=== PATIENT | female | born 1990 | race Caucasian/White ===

== ENCOUNTER → 2022-05-27 | Outpatient (CLI) | payer OTHER ==
[~2022-05-27] MED LIST: ACET-11 PO; IBUP-1773 PO; PNV1TABL67 PO
--- NOTE | 2022-05-27 14:40 | Diagnostic Imaging Report ---
PROCEDURE: Pelvic comp/transvaginal sonogram. TECHNIQUE: Complete transabdominal and transvaginal pelvic ultrasound was performed. In addition, limited pelvic Doppler was performed. INDICATION: Abnormal uterine bleeding. FINDINGS: Uterus is retroverted measuring 6.8 x 4.8 x 5.4 cm. Endometrium is 4 mm in thickness. No myometrial mass is detected. Right ovary measures 3.4 x 1.5 x 1.5 cm, and the left ovary measures 3.7 x 2.8 x 3.0 cm. Both ovaries contain follicles. There is a dominant follicle on the left measuring 16 mm. There is blood flow to both ovaries. No adnexal mass or free fluid is detected. IMPRESSION: Unremarkable transabdominal and transvaginal pelvic ultrasound with limited pelvic Doppler. Dictated by: Dictated on workstation # [id number]
== END ==
LOC: RAD 11:34
PROVIDERS: ATTEND Obstetrics & Gynecology
DX: N93.9 Abnormal uterine and vaginal bleeding, unspecified (principal)
CPT/HCPCS: 76830; 76856

== ENCOUNTER 2022-05-31 05:30 | Outpatient (CLI) | payer SELFPAY ==
[~2022-05-31] VITALS: Ht 170.1 cm; Wt 73.6 kg
[2022-06-01] MEDS ORDERED: ACYC400T21 PO (13:55)
== END 2022-06-01 15:45 | disposition home or self-care (01) ==
LOC: PREOP 05:30
PROVIDERS: ATTEND Obstetrics & Gynecology
DX: Z01.818 Encounter for other preprocedural examination (principal)

== ENCOUNTER 2022-06-07 08:52 | Day surgery (SDC) | payer OTHER ==
[~2022-06-07] VITALS: Ht 170.1 cm; Wt 73.6 kg
[2022-06-07] VITALS (10 sets, daily range): BP systolic 116–147; BP diastolic 61–91
[~2022-06-07 08:52] MED LIST changes: +ACYC400T21 PO
[2022-06-07] MEDS ORDERED: BUPIVACAINE 0.25% 30 ML (SENSORCAINE) VIAL ONE (09:34)
[2022-06-07] MEDS ORDERED: BUPIVACAINE 0.25% 30 ML (SENSORCAINE) VIAL INJ ONE (09:40)
[2022-06-07] MEDS ORDERED: metroNIDAZOLE 500MG/100ML IVPB 100 ML IV ONE (09:45)
[2022-06-07] MEDS ORDERED: ceFAZolin INJECTION 2,000 MG in NS (IVPB) 50 ML IV ONE (09:45)
[2022-06-07] MEDS: LACTATED RINGERS 1,000 ML IV PRN ×2 (10:03→10:45)
[2022-06-07 10:14] LABS: BASOPHILS % (AUTO) 0 % (0-10); EOSINOPHILS # (AUTO) 0.1 10^3/uL (0.0-0.3); EOSINOPHILS % (AUTO) 1 % (0-10); HEMATOCRIT 45 % (35-52); LYMPHOCYTES # (AUTO) 2.6 10^3/uL (1.0-4.0); LYMPHOCYTES % (AUTO) 31 % (12-44); MEAN CORPUSCULAR HEMOGLOBIN 31 pg (25-34); MEAN CORPUSCULAR HGB CONC 35 g/dL (32-36); MEAN CORPUSCULAR VOLUME 87 fL (80-99); MEAN PLATELET VOLUME 10.8 fL (9.0-12.2); MONOCYTES # (AUTO) 0.5 10^3/uL (0.0-1.0); MONOCYTES % (AUTO) 6 % (0-12); NEUTROPHILS % (AUTO) 61 % (42-75); PLATELET COUNT 215 10^3/uL (130-400); WHITE BLOOD COUNT 8.2 10^3/uL (4.3-11.0)
[2022-06-07] MEDS ORDERED: LIDOCAINE PF 2% 5 ML (XYLOCAINE) VIAL ONE (10:49)
[2022-06-07] MEDS ORDERED: ONDANSETRON 4 MG/2 ML (SDV) Z0FRAN ONE (10:49)
[2022-06-07] MEDS ORDERED: MIDAZOLAM 2 MG/2 ML (VERSED) VIAL ONE (10:49)
[2022-06-07] MEDS ORDERED: proPOfol 200 MG/20 ML (DIPRIVAN) VIAL IV ONE (10:49)
[2022-06-07] MEDS ORDERED: SEVOFLURANE (ULTANE) 15 ML INHAL SOLN ONE (10:49)
[2022-06-07] MEDS ORDERED: fentaNYL INJ 100 MCG/2 ML AMP ONE (10:49)
[2022-06-07] MEDS ORDERED: ROCURONIUM 50 MG/5 ML (ZEMURON) VIAL IV ONE (10:49)
--- NOTE | 2022-06-07 11:08 | Progress Note-Pre Operative ---
Pre-Operative Progress Note Date of Available H&P: Jun 07, 2022 Date H&P Reviewed: Jun 07, 2022 Time H&P Reviewed: 11:00 History & Physical: H&P Reviewed, Patient Examed, No changes noted Pre-Operative Diagnosis: Severe cervical dysplasia, AUB, Menorrhgia ROLANDA LANE DO Jun 07, 2022 11:08
--- NOTE | 2022-06-07 11:13 | Discharge Inst-Women's Service ---
Discharge Inst-Women's Serv Depart Medication/Instructions New, Converted or Re-Newed RX: Transmitted to Pharmacy Problems Reviewed?: Yes Consults/Follow Up Additional Follow Up: Yes Orders/Referrals Dr. Hardy in 7-10 days and in 8 weeks Activity Activity: Activity as Tolerated Driving Instructions: No Driving for 1 Week NO SMOKING: NO SMOKING Nothing Inside Vagina: No Douching, No Frederickson, No Tampons Diet Discharge Diet: No Restrictions Symptoms to Report to : Bleeding Excessive, Pain Increased, Fever Over 101 Degrees F, Vaginal Bleeding Increase, Questions/Concerns For Any Problems or Questions: Contact Your Physician Skin/Wound Care Infection Signs and Symptoms: Increased Redness, Foul Odor of Wound, Increased Drainage, Skin Itchy or Has a Rash, Increased Swelling, Temperature Above 101 F Operative Area Clean and Dry: Keep Incision Clean/Dry Stitches/Francy/Dermabond: Dermabond, Care of Stitches Bathing Instructions: ROLANDA Lujan DO Jun 07, 2022 11:13
[2022-06-07] MEDS ORDERED: DOCU100C37 PO (11:14)
[2022-06-07] MEDS ORDERED: HYDR-34 PO (11:14)
[2022-06-07] MEDS ORDERED: SIME80TA16 PO (11:14)
[2022-06-07] MEDS ORDERED: IBUP-844 PO (11:14)
[2022-06-07] MEDS ORDERED: IBUPROFEN 600 MG (MOTRIN) TAB PO PRN (11:15)
[2022-06-07] MEDS ORDERED: ANTACID SUSP 30 ML UDC (MYLANTA) PO PRN (11:15)
[2022-06-07] MEDS ORDERED: HYDROcodone/APAP 7.5 MG/325 MG (LORTAB, LORCET PLUS) TABLET PO PRN (11:15)
[2022-06-07] MEDS ORDERED: KETOROLAC 30 MG/ML VIAL IVP PRN (11:15)
[2022-06-07] MEDS ORDERED: DOCUSATE SODIUM 100 MG (COLACE) CAP PO PRN (11:15)
[2022-06-07] MEDS ORDERED: ONDANSETRON 4 MG/2 ML (SDV) Z0FRAN IV PRN (11:15)
[2022-06-07] MEDS ORDERED: ZOLPIDEM 5 MG (AMBIEN) TAB PO PRN (11:15)
[2022-06-07] MEDS ORDERED: BENZOCAINE LOZENGES 1 EACH LOZENGE MM PRN (11:15)
[2022-06-07] MEDS ORDERED: SIMETHICONE 80 MG (MYLICON) CHEW PO PRN (11:15)
[2022-06-07] MEDS ORDERED: HYDROmorphone 2 MG/ML VIAL (DILAUDID) ONE (11:47)
--- NOTE | 2022-06-07 12:51 | Anesthesia-General Post-Op ---
General Patient Condition Mental Status/LOC: Same as Preop Cardiovascular: Satisfactory Nausea/Vomiting: Absent Respiratory: Satisfactory Pain: Controlled Complications: Absent Post Op Complications Complications None Follow Up Care/Instructions Patient Instructions None needed. Anesthesia/Patient Condition Patient Condition Patient is doing well, no complaints, stable vital signs, no apparent adverse anesthesia problems. No complications reported per nursing. NED MORALES CRNA Jun 07, 2022 12:51
[2022-06-07] MEDS: LACTATED RINGERS 1,000 ML IV SCH ×2 (12:56→14:26)
[2022-06-07] MEDS ORDERED: KETOROLAC 30 MG/ML VIAL ONE (12:58)
[2022-06-07] MEDS ORDERED: morphine INJ 10 MG/ML 1ML (SYR OR VIAL) ONE (12:58)
[2022-06-07] MEDS ORDERED: ONDANSETRON 4 MG/2 ML (SDV) Z0FRAN IVP PRN (13:00)
[2022-06-07] MEDS ORDERED: morphine INJ 10 MG/ML 1ML (SYR OR VIAL) IVP ONE (13:00)
[2022-06-07] MEDS ORDERED: MEPERIDINE (DEMEROL) INJ 50 MG/ML IVP ONE (13:00)
--- NOTE | 2022-06-07 18:32 | OPERATIVE REPORT ---
DATE OF SERVICE: 06/07/2022 PREOPERATIVE DIAGNOSES: 1. A 31-year-old female with severe cervical dysplasia. 2. Abnormal uterine bleeding. POSTOPERATIVE DIAGNOSES: 1. A 31-year-old female with severe cervical dysplasia. 2. Abnormal uterine bleeding. PROCEDURE: Robotic-assisted total laparoscopic hysterectomy, bilateral salpingectomy. SURGEON: Rodger Hardy DO PILE DRIVING NOZZLEMAN: Marilin Lawrence DNP was necessary for manipulation and retraction throughout the procedure. ANESTHESIA: General endotracheal. ESTIMATED BLOOD LOSS: Minimal. URINE OUTPUT: 100 mL clear at the end of the procedure. FLUIDS: 1800 mL lactated Ringer's solution. FINDINGS: Grossly normal-appearing uterus, bilateral fallopian tubes and ovaries, normal-appearing external female genitalia. SPECIMEN SENT: Uterus, cervix and bilateral fallopian tubes. INDICATIONS FOR PROCEDURE: This 31-year-old female, was a patient who had sought care in my office for severe cervical dysplasia. She had undergone previous conization biopsies and colposcopies in the past and this had become recurrent cycle for her. She is wishing to proceed with more definitive measures and she has completed childbearing. She wanted in my office to proceed with hysterectomy. Alternatives were discussed with the patient and she was not interested in those. The robotic hysterectomy was discussed with the patient in detail including risk of bleeding, infection, damage to surrounding structures including but not limited to bowel, bladder, ureter, kidneys, possible need for reoperation, postoperative complications that may occur, recovery timeframe, risk from anesthesia and even . After everything was discussed with the patient in detail, consent was obtained in the preoperative area. The patient was taken to the operating room. OPERATIVE REPORT IN DETAIL: Once in the operating room, general anesthesia was administered and found to be adequate. She was placed in dorsal lithotomy position, prepped and draped in normal sterile fashion. A timeout was performed. A Renee catheter was placed using sterile technique. A weighted speculum inserted to the patient's vagina. Right angle retractor was used to visualize the cervix, which was grasped at 12 o'clock position using a long Allis clamp. An 0 Vicryl suture was then placed at anterior lip of the cervix and used my retraction point. I then gently sound the uterine cavity, depth was found to be 8 cm. I selected an 8 cm ARMIDA uterine manipulator tip and a 3.5 cm colpotomy ring. The manipulator tip was advanced into the uterus and balloon is deployed and the colpotomy ring was advanced around the vaginal fornix. I then removed the remainder of the instruments from the patient's vagina, performed change of gloves. I turned my attention to the abdomen where subcostally at the midclavicular line, I introduced the Veress needle through the skin until intraperitoneal placement was confirmed using saline drop test. An opening pressure of 4 mmHg was noted. I proceeded with CO2 insufflation to max pressure of 15 mmHg, at which point I make an infraumbilical incision with a knife and direct a blunt laparoscopic da Sam camera trocar through the incision until intraperitoneal placement was confirmed using the da Sam laparoscope. There was no evidence of damage from entry site. A brief scan of the upper abdominal anatomy appears to be grossly normal with no evidence of damage from the Veress entry site and the Veress was removed at that point. I then had the patient placed in steep Trendelenburg where I am able to visualize all my pelvic anatomy as defined in my findings above. I placed 2 lateral trocars. These are both 8 mm trocars approximately 8 cm lateral to my infraumbilical trocar. Once both of these were in place, I bring in the da Sam robot and docked in appropriate fashion. Using a SynchroSeal device in the left hand and monopolar mark in the right hand, I performed the following dissection bilaterally. Starting at the uteroovarian ligament, I sealed and transected this using the SynchroSeal device. I then created a window in the mesosalpinx. I took this laterally down the mesosalpinx using the SynchroSeal device. I then grasped the round ligament, which I sealed and transected using the SynchroSeal device. I then grasped the entire broad ligament, which I sealed and transected using the SynchroSeal device down to the level of the lower uterine segment, at which point I the anterior and posterior leaflets of the broad ligament. Anterior leaflet was taken around the anterior vaginal fornix. Posterior leaflet was taken around the posterior vaginal fornix. This allows me to skeletonize the uterine vessels laterally, which I sealed and transected using the SynchroSeal device. I then created a colpotomy at 12 o'clock position using monopolar mark and took this circumferentially around the vaginal fornix amputating the cervix away from the vagina. The entire specimen was then removed through the vagina. I then closed the vaginal cuff using 2-0 V-Loc in a running fashion, after which there was no active bleeding noted from any of my dissection planes. I then undocked da Sam robot and proceeded with remainder of the case laparoscopically. I copiously irrigated the pelvis using normal saline. Once again, there was no active bleeding noted from any of my dissection planes. I placed Surgiflo hemostatic agent over all my planes of dissection. I had the patient taken out of Trendelenburg where I removed the lateral trocars under direct visualization of laparoscope. The infraumbilical trocars left in place to release the remainder of insufflation and to introduce 10 mL of 0.25% Marcaine in peritoneal cavity for postoperative pain management. I then removed this trocar as well. The skin reapproximated using 4-0 Monocryl interrupted subcuticular stitches. Dermabond was applied to incision and Band-Aids were placed over the incisions as well. Renee catheter was left in place. Two grams of Ancef and 500 mg of Flagyl were given preoperatively for infection prophylaxis. Lap and sponge counts were correct at the end of the procedure. Instrument counts correct as well. Job ID: [id number] DocumentID: [id number] Dictated Date: 06/07/2022 13:07:03 Executor Of Estate Date: 06/07/2022 18:26:00 Dictated By: DO DEREK ANDERSON
== END 2022-06-07 18:35 | disposition home or self-care (01) ==
LOC: SDC 08:52 → WS 13:40 → SDC 18:35
PROVIDERS: ATTEND Obstetrics & Gynecology
DX: D06.9 Carcinoma in situ of cervix, unspecified (principal); N72 Inflammatory disease of cervix uteri; N83.8 Other noninflammatory disorders of ovary, fallopian tube and broad ligament; N93.9 Abnormal uterine and vaginal bleeding, unspecified; F17.210 Nicotine dependence, cigarettes, uncomplicated
CPT/HCPCS: 36415; 84703; 85025; 86850; 86900; 86901; 87081; 94664